=== PATIENT | male | born 1950 | race Hispanic/Latino ===

== ENCOUNTER → 2017-12-24 07:32 | Outpatient (CLI) | payer MEDICARE, SELFPAY ==
[2017-12-24 08:16] LABS: Absolute Lymphocyte Count 2.53 X10^3/ul (0.83-4.51); Absolute Neutrophil Count 4.7 X10^3/uL (2.0-7.7); Basophil# 0.04 X10^3/uL; Basophil% 0.5 % (0-1); Eosinophils% 2.5 % (0-5); Hematocrit 46.7 % (40-54); Hemoglobin 16.1 g/dl (13.0-16.5); Lymphocyte # 2.53 X10^3/ul (4.0); Mean Corp Hgb Conc 34.5 g/gl (32-36); Mean Corpuscular Hgb 28.9 pg (27.0-32.0); Mean Corpuscular Volume 83.7 fL (80-94); Mean Platelet Vol. 10.3 fl (6.2-12.0); Monocyte% 7.4 % (0-10); Neutrophil # 4.74 X10^3/uL (2.7-7.7); Neutrophil % 58.1 % (47-70); POSITIVE COUNT NO; POSITIVE DIFFERENTIAL NO; POSITIVE MORPHOLOGY NO; Platelet Count 199 K/mm3 (150-450); RBC Distribution Width CV 13.6 % (11.6-14.6); RBC Distribution Width SD 41.5 fl (35.1-43.9); Red Blood Count 5.58 M/mm3 (4.6-6.2); White Blood Count 8.2 K/mm3 (4.4-11.0)
[2017-12-24 08:55] LABS: AST(SGOT) 16 U/L (15-37); Alanine Aminotransfer ALT/SGPT 18 U/L (16-61); Albumin, Serum 3.7 g/dL (3.2-5.0); Alkaline Phosphatase 69 U/L (45-117); Anion Gap 7 (5-15); BUN 19 mg/dL (7-18); BUN/Creat Ratio 24.8 RATIO (10-20); Bilirubin, Direct 0.15 mg/dL (0.00-0.30); Calcium,Total 8.7 mg/dL (8.5-10.1); Chloride 106 mmol/L (98-107); Cholesterol 159 mg/dL (200); Creatinine, Serum 0.77 mg/dL (0.70-1.30); EST Glomerular Filtration Rate 107 mL/min (>60); Est Glom Filt Rate - Afr Amer 130 mL/min (>60); Globulin 3.6 g/dL (2.2-4.2); Glucose 84 mg/dL (74-106); High Density Lipoprotein 33 mg/dL; Potassium 4.1 mmol/L (3.5-5.1); Protein, Total 7.3 g/dL (6.4-8.2); Sodium Level 140 mmol/L (136-145); Thyroid Stim Hormone (TSH) 1.99 uIU/mL (0.358-3.74); Triglycerides 265 mg/dL; Very Low Density Lipoprotein 53 mg/dL (5-40)
== END ==
PROVIDERS: Family Provider Family Medicine; PCP Family Medicine; Visit Provider Physician Assistant Medical
DX: I10 Essential (primary) hypertension (principal); E78.5 Hyperlipidemia, unspecified; I25.10 Atherosclerotic heart disease of native coronary artery without angina pectoris; Z79.899 Other long term (current) drug therapy
CPT/HCPCS: 36415; 80048; 80061; 80076; 84443; 85025

== ENCOUNTER → 2018-01-10 14:30 | Outpatient (CLI) | payer MEDICARE, SELFPAY ==
[2018-01-10 15:46] LABS: PSA,Total - Annual Screen 1.99 ng/mL (0.00-4.00)
== END ==
PROVIDERS: Family Provider Family Medicine; PCP Family Medicine; Visit Provider Urology
DX: Z12.5 Encounter for screening for malignant neoplasm of prostate (principal)
CPT/HCPCS: 36415; 84153; G0103

== ENCOUNTER → 2018-08-12 06:49 | Outpatient (CLI) | payer MEDICARE, SELFPAY ==
[2018-08-12 08:33] LABS: AST(SGOT) 18 U/L (15-37); Alanine Aminotransfer ALT/SGPT 19 U/L (16-61); Albumin, Serum 3.6 g/dL (3.2-5.0); Alkaline Phosphatase 67 U/L (45-117); Bilirubin, Direct 0.09 mg/dL (0.00-0.30); Cholesterol 176 mg/dL (200); Globulin 3.5 g/dL (2.2-4.2); High Density Lipoprotein 31 mg/dL; Protein, Total 7.1 g/dL (6.4-8.2); Triglycerides 285 mg/dL; Very Low Density Lipoprotein 57 mg/dL (5-40)
== END ==
PROVIDERS: Family Provider Family Medicine; PCP Family Medicine; Visit Provider Internal Medicine Cardiovascular Disease
DX: I10 Essential (primary) hypertension (principal); E78.5 Hyperlipidemia, unspecified
CPT/HCPCS: 36415; 80061; 80076

== ENCOUNTER → 2019-01-16 14:38 | Outpatient (CLI) | payer MEDICARE, SELFPAY ==
--- NOTE | 2019-01-16 15:22 | RAD_ITS ---
STUDY: X-RAY CHEST REASON FOR EXAM: Male, 68 years old. Cough TECHNIQUE: PA and lateral views of the chest. COMPARISON: None. FINDINGS: Hyperexpansion of the lungs. No confluent airspace opacity. Calcified nodule at the right midlung base. Subtle nodular density at the right lateral lung base which likely represents a nipple shadow. No pleural effusion. No pneumothorax. Normal size heart. Normal mediastinum and bonifacio. Normal visualized pulmonary arteries. There is atherosclerotic calcification of the aortic arch with tortuosity. Macro spine. Normal visualized ribs, clavicles, and shoulders. There is no demonstrated abnormality of the visualized soft tissue structures of the upper abdomen. RAD/Chest PA and Lateral IMPRESSION: Chronic obstructive change with no evidence of acute cardiopulmonary disease. Electronically Signed: Julio Cesar Wagner MD at 2:28 EST Tel , Service support ,
[2019-01-16 16:39] LABS: Absolute Lymphocyte Count 1.38 X10^3/ul (0.83-4.51); Absolute Neutrophil Count 5.7 X10^3/uL (2.0-7.7); Basophil# 0.03 X10^3/uL; Basophil% 0.4 % (0-1); Eosinophil# 0.16 X10^3/uL; Hematocrit 47.4 % (40-54); Hemoglobin 15.7 g/dl (13.0-16.5); Lymphocyte # 1.38 X10^3/ul (4.0); Lymphocyte % 16.9 % (19-41); Mean Corp Hgb Conc 33.1 g/gl (32-36); Mean Corpuscular Hgb 28.5 pg (27.0-32.0); Mean Corpuscular Volume 86.2 fL (80-94); Mean Platelet Vol. 11.2 fl (6.2-12.0); Monocyte# 0.93 X10^3/uL; Monocyte% 11.4 % (0-10); Neutrophil # 5.65 X10^3/uL (2.7-7.7); Neutrophil % 69.1 % (47-70); Platelet Count 222 K/mm3 (150-450); RBC Distribution Width CV 13.5 % (11.6-14.6); RBC Distribution Width SD 41.6 fl (35.1-43.9); White Blood Count 8.2 K/mm3 (4.4-11.0)
[2019-01-16 16:42] LABS: POSITIVE COUNT NO; POSITIVE DIFFERENTIAL NO; POSITIVE MORPHOLOGY NO
[2019-01-16 16:56] LABS: Anion Gap 11 (5-15); BUN 15 mg/dL (7-18); BUN/Creat Ratio 20.3 RATIO (10-20); Chloride 102 mmol/L (98-107); Creatinine, Serum 0.74 mg/dL (0.70-1.30); EST Glomerular Filtration Rate 111 mL/min (>60); Est Glom Filt Rate - Afr Amer 135 mL/min (>60); Glucose 81 mg/dL (74-106); PSA,Total - Annual Screen 2.21 ng/mL (0.00-4.00); Potassium 4.2 mmol/L (3.5-5.1); Sodium Level 139 mmol/L (136-145); Thyroid Stim Hormone (TSH) 1.27 uIU/mL (0.358-3.74)
== END ==
PROVIDERS: Family Provider Family Medicine; PCP Family Medicine; Referring Provider Urology; Visit Provider Urology
DX: I10 Essential (primary) hypertension (principal); E78.5 Hyperlipidemia, unspecified; Z12.5 Encounter for screening for malignant neoplasm of prostate; R05 Cough
CPT/HCPCS: 36415; 71046; 80048; 84153; 84443; 85025; G0103

== ENCOUNTER 2019-07-04 16:08 | Inpatient (IN) | payer MEDICARE, SELFPAY ==
[2019-07-04 16:09] VITALS: BP 102/64; PULSE 129; RESP 16; TEMP 36.4; O2SAT 99; BMI 27.4
--- NOTE | 2019-07-04 16:43 | EKG12_ITS ---
Test Reason : DIZZINESS Blood Pressure : / mmHG Vent. Rate : 099 BPM Atrial Rate : 099 BPM P-R Int : 138 ms QRS Dur : 084 ms QT Int : 364 ms P-R-T Axes : 037 -09 -10 degrees QTc Int : 467 ms Normal sinus rhythm Nonspecific ST abnormality Abnormal ECG Confirmed by RINKU PINEDA ([id number]), desk editor WESLEY HERCULES ([id number]) on 07/05/2019 2:20:01 PM Referred By: Erika Cope Confirmed By:RINKU PINEDA
--- NOTE | 2019-07-04 16:44 | ED.DCSUM_ITS ---
- ER Visit Summary Date of Service: 07/04/19 Chief Complaint: Dizziness History of Present Illness: The patient is a 68 M presenting with dizziness, denies syncope. Patient states this started last night. He started having black stool with blood in his stool last night. He has had approximately 10 episodes of black diarrhea today. He was seen by his primary care physician and sent to the ED for further evaluation. He denies chest pain, shortness of breath, abdominal pain. He has nausea with no vomiting. Denies fever. Denies other complaints. He is on aspirin and Plavix. Physical Examination: Vitals are stable. Patient is afebrile. Alert no acute distress. HEENT exam is unremarkable. Neck is supple. Lungs are clear and equal bilaterally. Heart is regular and tachycardic Abdomen is soft nontender nondistended. No guarding or rebound Rectal: Gross blood Extremities are unremarkable. Skin is warm and dry. No focal neurologic deficit. Remainder of exam is unremarkable. Emergency Department Course and Treatment: Patient was given IV fluids. CBC shows white count 18.3, hemoglobin 12.5. Chemistries show glucose 186, BUN 29. INR 1.1. Troponin is negative. Stool is guaiac negative. I believe this is likely a false negative. Discussed with the hospitalist and Dr. Ortega. Patient will be admitted. Disposition: Admission Impression: GI bleed This note was generated with [employer] dictation software. It may contain incorrect words, spelling, and punctuation that were not noted in review of the chart prior to signing ED Disposition - Plan for ED Patient: Referrals: Jasmeet Murray MD [Primary Care Provider] -
[2019-07-04 16:46] VITALS: BP 100/83; PULSE 115; RESP 37; O2SAT 97
[2019-07-04] MEDS: 0.9% Normal Saline 1,000 ML 1000 ML IV (16:50)
[2019-07-04 17:21] LABS: Anion Gap 11 (5-15); BUN 29 mg/dL (7-18); BUN/Creat Ratio 22.3 RATIO (10-20); Calcium,Total 8.5 mg/dL (8.5-10.1); Chloride 106 mmol/L (98-107); EST Glomerular Filtration Rate 58 mL/min (>60); Est Glom Filt Rate - Afr Amer 70 mL/min (>60); Estimated Creatinine Clearance 40.83 ml/min; Glucose 186 mg/dL (74-106); Potassium 3.9 mmol/L (3.5-5.1); Sodium Level 140 mmol/L (136-145)
[2019-07-04 17:24] LABS: Absolute Lymphocyte Count 1.25 X10^3/uL (0.83-4.51); Absolute Neutrophil Count 16.2 X10^3/uL (2.0-7.7); Basophil# 0.03 X10^3/uL; Basophil% 0.2 % (0-1); Hematocrit 36.7 % (40-54); Hemoglobin 12.5 g/dL (13.0-16.5); Lymphocyte # 1.25 X10^3/ul (4.0); Lymphocyte % 6.8 % (19-41); Mean Corp Hgb Conc 34.1 g/dL (32-36); Mean Corpuscular Hgb 28.9 pg (27.0-32.0); Mean Corpuscular Volume 84.8 fL (80-94); Mean Platelet Vol. 10.5 fl (6.2-12.0); Monocyte# 0.61 X10^3/uL; Monocyte% 3.3 % (0-10); NRBC Flagged by Analyzer 0 % (0-5); Neutrophil # 16.24 X10^3/uL (2.7-7.7); Neutrophil % 88.8 % (47-70); POSITIVE MORPHOLOGY YES; Platelet Count 244 K/mm3 (150-450); RBC Distribution Width CV 13.2 % (11.6-14.6); RBC Distribution Width SD 40.9 fl (35.1-43.9); Red Blood Count 4.33 M/mm3 (4.6-6.2); White Blood Count 18.3 K/mm3 (4.4-11.0)
[2019-07-04 17:28] LABS: International Normalized Ratio 1.1; Partial Thromboplast Time 24.5 Seconds (24.1-36.2); Prothrombin Time (Protime)PT. 14.2 SECONDS (11.7-14.9)
[2019-07-04 17:29] LABS: Differential Indicated SCAN CRITERIA MET
[2019-07-04 18:18] LABS: Differential Comment SCANNED; Platelet Estimate ADEQUATE (ADEQ); Red Cell Morphology NORM C+C NORMAL (NORM C&C)
[2019-07-04 18:31] VITALS: BP 117/73; PULSE 96; RESP 27; O2SAT 97
--- NOTE | 2019-07-04 18:58 | PCM.HP.STD ---
Problem List (1) GI bleed Status: Acute (2) CAD (coronary artery disease) Status: Chronic (3) History of GI bleed Status: Chronic (4) Essential (primary) hypertension Status: Chronic (5) HLD (hyperlipidemia) Status: Chronic History of Present Illness Date of Admission: 07/04/19 Chief Complaint: black stools. The patient is a 68 year old M with pmhx of GI bleed, CAD with prior stents, HTN, HLD, BPH who presented to the ER with c/o black stools. This began last night. He has had black stools about 10x since it began in the evening. Today he feels dizzy. He has no SOB, or CP He feels fatigued. He has no nausea or vomiting. No abdominal pain. He has a hx of GI bleed - ten years prior and reports that no source was found. He does take asa/plavix as he has a hx of CAD and prior stents. His department of natural resources officer is Dr. Overton. [] Past Medical History Past Medical History (Chronic Problems): Chronic Problems (Last Reviewed 08/08/18 @ 14:01 by Andreas Overton MD) CAD (coronary artery disease) (Chronic) History of GI bleed (Chronic) Essential (primary) hypertension (Chronic) HLD (hyperlipidemia) (Chronic) Medical History: Medical History (Last Reviewed 08/08/18 @ 14:01 by Andreas Overton MD) Essential (primary) hypertension (Chronic) I10 HLD (hyperlipidemia) (Chronic) E78.5 Allergies No Known Allergies Allergy (Verified 07/04/19 16:11) Home Medications: Ambulatory Orders Medication Instructions Recorded Aspirin [Adult Low Dose Aspirin EC] 81 mg PO DAILY 05/07/16 Finasteride [Proscar] 5 mg PO DAILY 08/11/16 clopidogrel 75 mg tablet 75 mg PO DAILY #90 tab 05/10/18 lovastatin 40 mg tablet 40 mg PO DAILY #90 tab 08/03/18 hydrochlorothiazide 25 mg tablet 25 mg PO DAILY #90 tab 09/14/18 metoprolol tartrate 25 mg tablet 25 mg PO DAILY #90 tab 10/10/18 Ascorbic Acid [Vitamin C] 500 mg PO DAILY@0800 07/04/19 Surgical History: Surgical History (Last Reviewed 08/08/18 @ 14:01 by Andreas Overton MD) H/O percutaneous transluminal coronary angioplasty (Resolved) Z98.61 02/26/05 [facility], PTCA and stenting of proximal LAD and PTCA and stenting to proximal RCA at [facility] Surgical History: herniorrhaphy Psychiatric History: No pertinent psych hx Lives: Spouse/ Significant Other Smoking Status: Never smoker Tobacco Use: Non-smoker Alcohol: None Drugs: None - *Family History Maternal Family History: Family History (Last Reviewed 08/08/18 @ 14:01 by Andreas Overton MD) Father Diabetes History Items: No pertinent history Paternal Family History: Family History (Last Reviewed 08/08/18 @ 14:01 by Andreas Overton MD) Father Diabetes History Items: No pertinent history Review of Systems Constitutional: Denies: Chills, Fever, Weight Change HEENT: Denies: Head Aches, Sinus Congestion, Sinus Drainage Cardiovascular: Reports: Light Headedness, Syncope. Denies: Chest Pain, Chest Tightness, Edema, Heaviness, Palpitations Respiratory: Denies: Cough, Shortness of breath at rest, Sputum production Gastrointestinal: Denies: Abdominal Pain, Nausea, Vomiting Genitourinary: Denies: Dysuria Musculoskeletal: Denies: Joint Pain, Joint Tenderness Skin: Denies: Rash, Wounds Neurological: Denies: Numbness, Tingling, Focal weakness Psychiatric: Denies: Anxiety, Depression, Homicidal Ideations, Suicidal Ideations Hematologic/ Lymphatic: Denies: Easy Bruising, Easy Bleeding VTE Information - Inpt Only VTE Present on Admission: No VTE Mechan Device Prophylaxis: SCD's VTE Pharm Prophylaxis ordered?: No Patient Problems: Active and Suspected Problems (Last Reviewed 08/08/18 @ 14:01 by Andreas Overton MD) GI bleed (Acute) - Physical Exam General: Alert, Oriented x3, Cooperative HEENT: Atraumatic, PERRLA, EOMI, Normocephalic Neck: Supple, No JVD, Negative Carotid Bruits Lungs: Clear to auscultation, Normal air movement Cardiovascular: Regular rate, No murmurs Abdomen: Bowel Sounds Present, Soft, Non Tender Extremities: No edema, Capillary Refill Less than 3 Seconds Skin: No rashes, No breakdown Musculoskeletal: No Tenderness to Palpation of Joints or Extremities Neurological: Cranial nerves II-XII grossly intact Psych/Mental Status: Normal Affect, Appropriate, Alert and oriented to time, place, person, mood and affect Vital Signs Temp Pulse Resp BP Pulse Ox 97.6 F L 96 27 H 117/73 97 07/04/19 16:09 07/04/19 18:31 07/04/19 18:31 07/04/19 18:31 07/04/19 18:31 Oxygen Delivery Method Room Air Weight: 150 lb Body Mass Index (BMI) 27.4 Microbiology Past 72 Hours 07/04/19 16:45 Stool Occult Blood (JOSE) - Final Stool Laboratory Tests Past 24 Hrs 07/04/19 07/04/19 07/04/19 16:45 16:45 16:45 WBC 18.3 H RBC 4.33 L Hgb 12.5 L Hct 36.7 L MCV 84.8 MCH 28.9 MCHC 34.1 RDW Std Deviation 40.9 RDW Coeff of Hi 13.2 Plt Count 244 MPV 10.5 Immature Gran % (Auto) 0.900 Neut % (Auto) 88.8 H Lymph % (Auto) 6.8 L [place] % (Auto) 3.3 Eos % (Auto) 0.0 Baso % (Auto) 0.2 Absolute Neuts (auto) 16.2 H Absolute Lymphs (auto) 1.25 Nucleated RBC % 0 Differential Comment SCANNED Platelet Estimate ADEQUATE RBC Morphology NORM C+C PT 14.2 INR 1.1 APTT 24.5 Sodium 140 Potassium 3.9 Chloride 106 Carbon Dioxide 23.0 Anion Gap 11 BUN 29 H Creatinine 1.30 Estim Creat Clear Calc 40.83 Est GFR (MDRD) Af Amer 70 Est GFR (MDRD) Non-Af 58 L BUN/Creatinine Ratio 22.3 H Glucose 186 H Calcium 8.5 Troponin I < 0.015 Assessment/Plan All Active Problems (Last Reviewed 08/08/18 @ 14:01 by Andreas Overton MD) GI bleed (Acute) H/O percutaneous transluminal coronary angioplasty (Resolved) 1. Acute blood loss anemia 2/2 GI bleed - 10x black stools. Hemoccult negative. Hgb 12. Tachy in the ER. Cycle H/H. T&S. Hold Asa/plavix. Consult Shannon. Possible scopes in AM. Check iron/sat/ferritin. IV protonix. Clears. 2. Hx CAD prior stents - hold asa/plavix 3. HTN/HLD 4. Luekocytosis and hyperglycemia - suspect due to stress response. DVT ppx: SCDs This patient was seen by Ruben Marina PA-C under the supervision of Dr. Cope.
[2019-07-04 19:20] VITALS: BMI 24.0
[2019-07-04 19:23] VITALS: BP 125/74; PULSE 102; RESP 20; TEMP 37.1; O2SAT 96
[2019-07-04 19:27] VITALS: BMI 24.1
[2019-07-04 20:00] VITALS: PULSE 110
[2019-07-04] MEDS: 0.9% Normal Saline 1,000 ML 125 ML IV (20:03)
[2019-07-04 20:20] LABS: Hematocrit 30.2 % (40-54); Hemoglobin 10.2 g/dL (13.0-16.5)
[2019-07-04 20:37] LABS: Hemoglobin A1c 5.8 % (4.2-6.3)
[2019-07-04] MEDS: Atorvastatin Calcium 10 MG Tablet PO (21:01)
[2019-07-04] MEDS: Electrolyte Solution/Peg's 4000 ML 2000 ML PO (21:03)
[2019-07-04 22:55] VITALS: O2SAT 97
[2019-07-05] VITALS (18 sets, daily range): BP systolic 86–148; BP diastolic 53–93; PULSE 68–95; RESP 16–20; TEMP 36.6–37.5; O2SAT 93–100
[2019-07-05 02:24] LABS: Hematocrit 25.9 % (40-54); Hemoglobin 8.8 g/dL (13.0-16.5)
[2019-07-05] MEDS: 0.9% Normal Saline 1,000 ML 125 ML IV ×2 (04:15→15:59)
[2019-07-05 05:27] LABS: Absolute Lymphocyte Count 2.17 X10^3/uL (0.83-4.51); Absolute Neutrophil Count 9.4 X10^3/uL (2.0-7.7); Basophil# 0.03 X10^3/uL; Basophil% 0.2 % (0-1); Eosinophil# 0.01 X10^3/uL; Eosinophils% 0.1 % (0-5); Hematocrit 24.3 % (40-54); Hemoglobin 8.1 g/dL (13.0-16.5); Lymphocyte # 2.17 X10^3/ul (4.0); Mean Corp Hgb Conc 33.3 g/dL (32-36); Mean Corpuscular Hgb 28.7 pg (27.0-32.0); Mean Corpuscular Volume 86.2 fL (80-94); Mean Platelet Vol. 10.3 fl (6.2-12.0); Monocyte# 1.05 X10^3/uL; Monocyte% 8.2 % (0-10); NRBC Flagged by Analyzer 0 % (0-5); Neutrophil # 9.38 X10^3/uL (2.7-7.7); Neutrophil % 73.6 % (47-70); Platelet Count 159 K/mm3 (150-450); RBC Distribution Width CV 13.6 % (11.6-14.6); RBC Distribution Width SD 42.5 fl (35.1-43.9); Red Blood Count 2.82 M/mm3 (4.6-6.2); White Blood Count 12.8 K/mm3 (4.4-11.0)
[2019-07-05 05:34] LABS: International Normalized Ratio 1.2; Partial Thromboplast Time 26.9 Seconds (24.1-36.2); Prothrombin Time (Protime)PT. 14.6 SECONDS (11.7-14.9)
--- NOTE | 2019-07-05 05:55 | EKG12_ITS ---
Test Reason : AM EKG Blood Pressure : / mmHG Vent. Rate : 088 BPM Atrial Rate : 088 BPM P-R Int : 148 ms QRS Dur : 088 ms QT Int : 330 ms P-R-T Axes : 026 -22 003 degrees QTc Int : 399 ms Normal sinus rhythm Nonspecific T wave abnormality Abnormal ECG When compared with ECG of 04-JUL-2019 17:01, MANUAL COMPARISON REQUIRED, DATA IS UNCONFIRMED Confirmed by BABS SPRING, ALY ([id number]), proposal editor WESLEY HERCULES ([id number]) on 07/10/2019 1:57:14 PM Referred By: Erika Cope Confirmed By:ALEXIS BRICE MD
[2019-07-05 05:56] LABS: AST(SGOT) 14 U/L (15-37); Alanine Aminotransfer ALT/SGPT 10 U/L (16-61); Albumin, Serum 2.5 g/dL (3.2-5.0); Alkaline Phosphatase 44 U/L (45-117); Anion Gap 3 (5-15); BUN 25 mg/dL (7-18); BUN/Creat Ratio 33.3 RATIO (10-20); Bilirubin, Direct 0.07 mg/dL (0.00-0.30); Calcium,Total 7.2 mg/dL (8.5-10.1); Chloride 113 mmol/L (98-107); Creatinine, Serum 0.75 mg/dL (0.70-1.30); EST Glomerular Filtration Rate 109 mL/min (>60); Est Glom Filt Rate - Afr Amer 132 mL/min (>60); Estimated Creatinine Clearance 55.32 ml/min; Globulin 2.3 g/dL (2.2-4.2); Glucose 109 mg/dL (74-106); Protein, Total 4.8 g/dL (6.4-8.2); Sodium Level 144 mmol/L (136-145)
--- NOTE | 2019-07-05 10:55 | PCM.PN.HOSP ---
Patient Problems: Active and Suspected Problems (Last Reviewed 08/08/18 @ 14:01 by Andreas Overton MD) GI bleed (Acute) Subjective: No further rectal bleeding/melena. Never had this before. No abdominal pain. Vitals/I&O's: Vital Signs Temp Pulse Resp BP Pulse Ox 37.0 C 82 16 121/53 H 98 07/05/19 09:01 07/05/19 09:01 07/05/19 09:01 07/05/19 09:01 07/05/19 09:01 Oxygen Delivery Method Room Air Weight: 61.6 kg Body Mass Index (BMI) 24.0 Intake and Output for Last 24 Hours 07/03/19 07/04/19 07/05/19 23:59 23:59 23:59 Intake Total 1968 743 / 743 Balance 1968 743 / 743 General: Alert, No apparent distress HEENT: Atraumatic, Normocephalic Oral: Moist Mucosa, No Gingival or Mucosal Lesions/ Ulcerations Neck: No Nodes, Thyroid Normal Size and Texture Lungs: Clear to auscultation, Normal air movement, No rhonchi, No wheeze Cardiovascular: Regular rate, Regular Rhythm, Normal S1, Normal S2, No murmurs Abdomen: Bowel Sounds Present, Soft, Non Tender, Non-Distended, No Hepato-splenomegaly Extremities: No edema, No Calf Tenderness Skin: No rashes, No breakdown Musculoskeletal: No Tenderness to Palpation of Joints or Extremities, No Muscle Wasting Psych/Mental Status: Normal Affect, Appropriate Microbiology Past 72 Hours 07/04/19 16:45 Stool Stool Occult Blood (JOSE) - Final Laboratory Results 07/04/19 16:45: WBC 18.3 H, RBC 4.33 L, Hgb 12.5 L, Hct 36.7 L, MCV 84.8, MCH 28.9, MCHC 34.1, RDW Std Deviation 40.9, RDW Coeff of Hi 13.2, Plt Count 244, MPV 10.5, Immature Gran % (Auto) 0.900, Neut % (Auto) 88.8 H, Lymph % (Auto) 6.8 L, [place] % (Auto) 3.3, Eos % (Auto) 0.0, Baso % (Auto) 0.2, Absolute Neuts (auto) 16.2 H, Absolute Lymphs (auto) 1.25, Nucleated RBC % 0, Differential Comment SCANNED, Platelet Estimate ADEQUATE, RBC Morphology NORM C+C 07/04/19 16:45: PT 14.2, INR 1.1, APTT 24.5 07/04/19 16:45: Sodium 140, Potassium 3.9, Chloride 106, Carbon Dioxide 23.0, Anion Gap 11, BUN 29 H, Creatinine 1.30, Estim Creat Clear Calc 40.83, Est GFR (MDRD) Af Amer 70, Est GFR (MDRD) Non-Af 58 L, BUN/Creatinine Ratio 22.3 H, Glucose 186 H, Calcium 8.5, Troponin I < 0.015 07/04/19 16:45: Blood Type A POSITIVE, Antibody Screen NEGATIVE 07/04/19 20:02: Hgb 10.2 L, Hct 30.2 L 07/04/19 20:02: Hemoglobin A1c 5.8 07/05/19 02:10: Hgb 8.8 L, Hct 25.9 L 07/05/19 05:05: WBC 12.8 H, RBC 2.82 L, Hgb 8.1 L, Hct 24.3 L, MCV 86.2, MCH 28.7, MCHC 33.3, RDW Std Deviation 42.5, RDW Coeff of Hi 13.6, Plt Count 159, MPV 10.3, Immature Gran % (Auto) 0.900, Neut % (Auto) 73.6 H, Lymph % (Auto) 17.0 L, [place] % (Auto) 8.2, Eos % (Auto) 0.1, Baso % (Auto) 0.2, Absolute Neuts (auto) 9.4 H, Absolute Lymphs (auto) 2.17, Nucleated RBC % 0 07/05/19 05:05: Sodium 144, Potassium 4.0, Chloride 113 H, Carbon Dioxide 28.0, Anion Gap 3 L, BUN 25 H, Creatinine 0.75, Estim Creat Clear Calc 55.32, Est GFR (MDRD) Af Amer 132, Est GFR (MDRD) Non-Af 109, BUN/Creatinine Ratio 33.3 H, Glucose 109 H, Calcium 7.2 L, Total Bilirubin 0.30, Direct Bilirubin 0.07, AST 14 L, ALT 10 L, Alkaline Phosphatase 44 L, Total Protein 4.8 L, Albumin 2.5 L, Globulin 2.3 07/05/19 05:05: PT 14.6, INR 1.2, APTT 26.9 Current Medications Acetaminophen (Tylenol) 650 mg PO Q6H PRN PRN PRN Reason: Non-cardiac pain (mod-severe) Hydrocodone Bitart/Acetaminophen ([place] 5mg-325mg) 1 - 2 tablet PO Q6H PRN PRN PRN Reason: MOD-SEVERE PAIN (4-10/10) Albuterol Sulfate (Ventolin Aerosols) 2.5 mg INHALATION Q2H PRN PRN PRN Reason: dyspnea, wheezing Atorvastatin Calcium (Lipitor) 10 mg PO QHS [facility] Last Admin: 07/04/19 21:01 Dose: 10 mg Documented by: Dextrose ([id number] Syringe) 0 gm IV X1 PRN; Protocol PRN Reason: Hypoglycemia Finasteride (Proscar) 5 mg PO DAILY [facility] Glucagon () 1 mg IM .X1 PRN PRN Reason: Hypoglycemia Hydralazine HCl (Apresoline Iv) 10 mg IV Q4H PRN PRN PRN Reason: SBP > 160 Hydrochlorothiazide (Hctz) 25 mg PO DAILY [facility] Sodium Chloride () 1,000 mls @ 125 mls/hr IV .Q8H [facility] Last Admin: 07/05/19 04:15 Dose: 125 mls/hr Documented by: Pantoprazole Sodium 40 mg/ (Sodium Chloride) 110 mls @ 330 mls/hr IV Q12 [facility] Last Admin: 07/04/19 21:01 Dose: 330 mls/hr Documented by: Melatonin (Melatonin) 3 mg PO QHS PRN PRN PRN Reason: INSOMNIA Metoprolol Succinate (Toprol Xl ([place]eta [place])) 25 mg PO DAILY [facility] Morphine Sulfate () 1 - 2 mg IV Q4H PRN PRN PRN Reason: PAIN Nitroglycerin (Nitrostat) 0.4 mg SUBLINGUAL Q5M PRN PRN Reason: CARDIAC/CHEST PAIN Ondansetron HCl (Zofran) 4 mg IV Q8H PRN PRN PRN Reason: NAUSEA/VOMITING Sodium Chloride () 10 - 40 ml IV UD PRN PRN Reason: SALINE FLUSH Medical Necessity - Tobacco Use Smoking Status: Never smoker Tobacco Use: Non-smoker Assessment/Plan All Active Problems (Last Reviewed 08/08/18 @ 14:01 by Andreas Overton MD) GI bleed (Acute) H/O percutaneous transluminal coronary angioplasty (Resolved) 1. GI bleed unknown source resolved at this time on pantoprazole IV EGD and c-scope for today exacerbated by ASA and clopidogrel--which have been held 2. Acute blood loss anemia 2/2 above Hg went from 12.5 to 8.1 no need for transfusion at this time. 3. CAD last PCI in 2004 ASA and clopidogrel held given above, unclear when could be restarted. Likely to start with ASA. Question if needs to continue clopidogrel. 4. VTE prophylaxis: SCDs. no chemical prophylaxis given #1 and 2. Code Visit Inpatient E&M: 25867 Subs Hosp L2
--- NOTE | 2019-07-05 10:56 | PCM.CONS.GEN ---
Reason for Consult Date of Consultation: 07/05/19 Reason for Consultation: acute anemia History of Present Illness: The patient is a 68 year old M with history of coronary artery disease status post percutaneous transluminal coronary stenting on Plavix and aspirin who presents with a 1 day history of bloody stools. He notes no abdominal pain. He notes no reflux episodes or other difficulties. He presented emergency department. He was noted to have it was felt to be renetta blood. Interestingly his occult blood was listed as negative. The patient was noted to be tachycardic on presentation with a heart rate of 129 area initial hemoglobin was 12.. The patient was admitted to the medicine service. he was bowel prepped given the fact that he responded to IV fluid hydration and was felt to be a reasonable hematocrit on presentation. His hemoglobin this morning is dropped to 8.1. The patient states he feels no chest pain or shortness of breath. We had discussed the possibility of blood transfusion the patient wishes not to undergo blood transfusion. Past Medical History Past Medical History (Chronic Problems): Chronic Problems (Last Reviewed 08/08/18 @ 14:01 by Andreas Overton MD) CAD (coronary artery disease) (Chronic) History of GI bleed (Chronic) Essential (primary) hypertension (Chronic) HLD (hyperlipidemia) (Chronic) Medical History: Medical History (Last Reviewed 08/08/18 @ 14:01 by Andreas Overton MD) Essential (primary) hypertension (Chronic) I10 HLD (hyperlipidemia) (Chronic) E78.5 Allergies No Known Allergies Allergy (Verified 07/04/19 16:11) Home Medications: Ambulatory Orders Medication Instructions Recorded Aspirin [Adult Low Dose Aspirin EC] 81 mg PO DAILY 05/07/16 Finasteride [Proscar] 5 mg PO DAILY 08/11/16 clopidogrel 75 mg tablet 75 mg PO DAILY #90 tab 05/10/18 lovastatin 40 mg tablet 40 mg PO DAILY #90 tab 08/03/18 hydrochlorothiazide 25 mg tablet 25 mg PO DAILY #90 tab 09/14/18 metoprolol tartrate 25 mg tablet 25 mg PO DAILY #90 tab 10/10/18 Ascorbic Acid [Vitamin C] 500 mg PO DAILY@0800 07/04/19 Surgical History: Surgical History (Last Reviewed 08/08/18 @ 14:01 by Andreas Overton MD) H/O percutaneous transluminal coronary angioplasty (Resolved) Z98.61 02/26/05 [facility], PTCA and stenting of proximal LAD and PTCA and stenting to proximal RCA at [facility] Surgical History: herniorrhaphy Psychiatric History: No pertinent psych hx Lives: Spouse/ Significant Other Smoking Status: Never smoker Tobacco Use: Non-smoker Alcohol: None Drugs: None - *Family History Maternal Family History: Family History (Last Reviewed 08/08/18 @ 14:01 by Andreas Overton MD) Father Diabetes History Items: No pertinent history Paternal Family History: Family History (Last Reviewed 08/08/18 @ 14:01 by Andreas Overton MD) Father Diabetes History Items: No pertinent history Review of Systems Constitutional: Reports: Weakness. Denies: Chills, Fever, Weight Change HEENT: Denies: Head Aches, Sinus Congestion, Sinus Drainage Cardiovascular: Denies: Chest Pain, Palpitations Respiratory: Denies: Cough, Shortness of breath at rest, Sputum production Gastrointestinal: Denies: Abdominal Pain, Nausea, Vomiting Genitourinary: Denies: Dysuria Musculoskeletal: Denies: Joint Pain, Joint Tenderness Skin: Denies: Rash, Wounds Neurological: Denies: Numbness, Tingling, Focal weakness Psychiatric: Denies: Anxiety, Depression, Homicidal Ideations, Suicidal Ideations Hematologic/ Lymphatic: Denies: Easy Bruising, Easy Bleeding Patient Problems: Active and Suspected Problems (Last Reviewed 08/08/18 @ 14:01 by Andreas Overton MD) GI bleed (Acute) - Physical Exam General: Alert, Oriented x3, Cooperative Lungs: Clear to auscultation, Normal air movement Cardiovascular: Regular rate, No murmurs Abdomen: Bowel Sounds Present, Soft, Non Tender Vital Signs Temp Pulse Resp BP Pulse Ox 98.6 F 82 16 121/53 H 98 07/05/19 09:01 07/05/19 09:01 07/05/19 09:01 07/05/19 09:01 07/05/19 09:01 Oxygen Delivery Method Room Air Weight: 61.6 kg Body Mass Index (BMI) 24.0 Intake and Output for Last 24 Hours 07/03/19 07/04/19 07/05/19 23:59 23:59 23:59 Intake Total 1968 743 / 743 Balance 1968 743 / 743 Microbiology Past 72 Hours 07/04/19 16:45 Stool Occult Blood (JOSE) - Final Stool Laboratory Tests Past 24 Hrs 07/04/19 07/04/19 07/04/19 16:45 16:45 16:45 WBC 18.3 H RBC 4.33 L Hgb 12.5 L Hct 36.7 L MCV 84.8 MCH 28.9 MCHC 34.1 RDW Std Deviation 40.9 RDW Coeff of Hi 13.2 Plt Count 244 MPV 10.5 Immature Gran % (Auto) 0.900 Neut % (Auto) 88.8 H Lymph % (Auto) 6.8 L [place] % (Auto) 3.3 Eos % (Auto) 0.0 Baso % (Auto) 0.2 Absolute Neuts (auto) 16.2 H Absolute Lymphs (auto) 1.25 Nucleated RBC % 0 Differential Comment SCANNED Platelet Estimate ADEQUATE RBC Morphology NORM C+C PT 14.2 INR 1.1 APTT 24.5 Sodium 140 Potassium 3.9 Chloride 106 Carbon Dioxide 23.0 Anion Gap 11 BUN 29 H Creatinine 1.30 Estim Creat Clear Calc 40.83 Est GFR (MDRD) Af Amer 70 Est GFR (MDRD) Non-Af 58 L BUN/Creatinine Ratio 22.3 H Glucose 186 H Hemoglobin A1c Calcium 8.5 Total Bilirubin Direct Bilirubin AST ALT Alkaline Phosphatase Troponin I < 0.015 Total Protein Albumin Globulin Blood Type Antibody Screen 07/04/19 07/04/19 07/04/19 16:45 20:02 20:02 WBC RBC Hgb 10.2 L Hct 30.2 L MCV MCH MCHC RDW Std Deviation RDW Coeff of Hi Plt Count MPV Immature Gran % (Auto) Neut % (Auto) Lymph % (Auto) [place] % (Auto) Eos % (Auto) Baso % (Auto) Absolute Neuts (auto) Absolute Lymphs (auto) Nucleated RBC % Differential Comment Platelet Estimate RBC Morphology PT INR APTT Sodium Potassium Chloride Carbon Dioxide Anion Gap BUN Creatinine Estim Creat Clear Calc Est GFR (MDRD) Af Amer Est GFR (MDRD) Non-Af BUN/Creatinine Ratio Glucose Hemoglobin A1c 5.8 Calcium Total Bilirubin Direct Bilirubin AST ALT Alkaline Phosphatase Troponin I Total Protein Albumin Globulin Blood Type A POSITIVE Antibody Screen NEGATIVE 07/05/19 07/05/19 07/05/19 02:10 05:05 05:05 WBC 12.8 H RBC 2.82 L Hgb 8.8 L 8.1 L Hct 25.9 L 24.3 L MCV 86.2 MCH 28.7 MCHC 33.3 RDW Std Deviation 42.5 RDW Coeff of Hi 13.6 Plt Count 159 MPV 10.3 Immature Gran % (Auto) 0.900 Neut % (Auto) 73.6 H Lymph % (Auto) 17.0 L [place] % (Auto) 8.2 Eos % (Auto) 0.1 Baso % (Auto) 0.2 Absolute Neuts (auto) 9.4 H Absolute Lymphs (auto) 2.17 Nucleated RBC % 0 Differential Comment Platelet Estimate RBC Morphology PT INR APTT Sodium 144 Potassium 4.0 Chloride 113 H Carbon Dioxide 28.0 Anion Gap 3 L BUN 25 H Creatinine 0.75 Estim Creat Clear Calc 55.32 Est GFR (MDRD) Af Amer 132 Est GFR (MDRD) Non-Af 109 BUN/Creatinine Ratio 33.3 H Glucose 109 H Hemoglobin A1c Calcium 7.2 L Total Bilirubin 0.30 Direct Bilirubin 0.07 AST 14 L ALT 10 L Alkaline Phosphatase 44 L Troponin I Total Protein 4.8 L Albumin 2.5 L Globulin 2.3 Blood Type Antibody Screen 07/05/19 05:05 WBC RBC Hgb Hct MCV MCH MCHC RDW Std Deviation RDW Coeff of Hi Plt Count MPV Immature Gran % (Auto) Neut % (Auto) Lymph % (Auto) [place] % (Auto) Eos % (Auto) Baso % (Auto) Absolute Neuts (auto) Absolute Lymphs (auto) Nucleated RBC % Differential Comment Platelet Estimate RBC Morphology PT 14.6 INR 1.2 APTT 26.9 Sodium Potassium Chloride Carbon Dioxide Anion Gap BUN Creatinine Estim Creat Clear Calc Est GFR (MDRD) Af Amer Est GFR (MDRD) Non-Af BUN/Creatinine Ratio Glucose Hemoglobin A1c Calcium Total Bilirubin Direct Bilirubin AST ALT Alkaline Phosphatase Troponin I Total Protein Albumin Globulin Blood Type Antibody Screen Assessment/Plan All Active Problems (Last Reviewed 08/08/18 @ 14:01 by Andreas Overton MD) GI bleed (Acute) H/O percutaneous transluminal coronary angioplasty (Resolved) GI bleed, acute hemoglobin drop from 12-8. I plan to perform upper and lower endoscopy. The patient understands the risks, benefits, complications and possible alternatives procedure and consents to the planned procedure. The patient currently receiving IV Protonix. He has a type and screen ordered. The patient states he does not wish to have a blood transfusion this is possible. I discussed with him that if his hemoglobin drops much below 8, given his cardiac history it would likely be prudent to transfuse him.
--- NOTE | 2019-07-05 11:30 | IMM_PTH ---
PATIENT: LATISHA DANIELS LOC: [facility] U#:[id number] AGE/SX: 68/M ROOM: [facility] RE07/04/[address]: Dr. Sanket Chen DO : 1950 BED: 1 DIS: 07/06/2019 SPEC #: [id number] RECD: 07/05/19 15:30 STATUS: JT REQ #: [id number] LUANN: 07/05/19 11:[address]: Avery Ortega DEPT: IMMUNOHISTOCHEMISTRY RECD BY: Madina Hager ENTERED: 07/05/19 15:30 SP TYPE: IMMUNO OTHR DR: MD Dr. Sanket Benitez DO Dr. Scott Hannan, MD Tissues: Stomach, NOS Procedures: H Pylori (initial) PHYSICIAN & INSTITUTION [place] [id number] SPECIMEN INFORMATION: Tissue Source: Antral biopsy Clinical Info: Acute GI bleed Specimen Number: [id number] CPT code: 66583 METHODOLOGY: Deparaffinized sections of prefer/formalin-fixed tissue or PAP/DQ stained slides are incubated with monoclonal/polyclonal antibodies/oligonucleotide probes. Localization is made via biotin free immunoperoxidase method. Appropriate controls are performed and reacted as expected. Results on target cell population are indicated in the following table: RESULTS: ANTIBODY / CLONE RESULT H Pylori (polyclonal) negative These tests were developed and their performance characteristics determined by [facility]. They may not have been cleared or approved by the U.S. Food and Drug Administration. The FDA has determined that such clearance or approval is not necessary. INTERPRETATION: Antral biopsy: Negative for Helicobacter pylori organisms. AM:andrés 07/06/19
--- NOTE | 2019-07-05 11:30 | COLBX_PTH ---
PATIENT: LATISHA DANIELS LOC: [facility] U#:[id number] AGE/SX: 68/M ROOM: [facility] RE07/04/[address]: Dr. Sanket Chen DO : 1950 BED: 1 DIS: 07/06/2019 SPEC #: [id number] RECD: 07/05/19 13:24 STATUS: JT REQ #: [id number] LUANN: 07/05/19 11:[address]: Avery Ortega DEPT: SURGICAL PATHOLOGY RECD BY: Ed Tay ENTERED: 07/05/19 13:56 SP TYPE: COLON BX OTHR DR: MD Dr. Sanket Benitez DO Dr. Scott Hannan, MD Tissues: Gastric mucous membrane Procedures: Surgery Specimen Level IV HEADER OPERATION: [place] PRE-[place] DIAGNOSIS: Acute GI bleed TISSUE SUBMITTED: Antral biopsy for H. pylori and pathology MICROSCOPIC DIAGNOSIS Gastric antrum, biopsy: Mild to moderate chronic gastritis. AM:andrés 07/06/19 COMMENT The results of immunohistochemistry for Helicobacter pylori will be reported separately ([id number]). MICROSCOPIC DESCRIPTION Slides are reviewed. GROSS DESCRIPTION Received in fixative is one container labeled with the patient's name and designated antral biopsy. The specimen consists of one irregular fragment of light manriquez soft tissue that measures 0.3 x 0.3 x 0.1 cm. The specimen is totally submitted in one cassette. / SJ:andrés 07/05/19 TC:3 CPT: 13091
--- NOTE | 2019-07-05 12:15 | OP.ENDO_ITS ---
07/05/2019 Jasmeet Murray Re : Upper GI endoscopy procedure for Arun Friedman Dear Trevor This procedure was performed on June. My impressions and recommendations are as follows: Impressions : - Normal examined jejunum. - Normal. - Normal antrum. Biopsied. - Small hiatal hernia. - Normal esophagus. Recommendations : - Return patient to [facility] for ongoing care. - Continue present medications. My findings are described in the full procedure note, which is enclosed. If I can be of further assistance, please feel free to contact me at Doctor phone number(s): , Work: . Sincerely, Avery Ortega MD 07/05/2019 12:15:17 PM This report has been signed electronically.
--- NOTE | 2019-07-05 12:18 | OP.ENDO_ITS ---
07/05/2019 Jasmeet Murray Re : Colonoscopy procedure for Arun Friedman Dear Trevor This procedure was performed on June. My impressions and recommendations are as follows: Impressions : - The examined portion of the ileum was normal. - Diverticulosis in the entire examined colon. - The distal rectum and anal verge are normal on retroflexion view. - No specimens collected. Recommendations : - Return patient to [facility] for ongoing care. - Advance diet as tolerated. - No recommendation at this time regarding repeat colonoscopy. - Continue present medications. My findings are described in the full procedure note, which is enclosed. If I can be of further assistance, please feel free to contact me at Doctor phone number(s): , Work: . Sincerely, Avery Ortega MD 07/05/2019 12:18:18 PM This report has been signed electronically.
[2019-07-05] MEDS: Metoprolol(XL)Succ 25 MG Tablet PO (13:41)
[2019-07-05] MEDS: Finasteride 5 MG Tablet PO (13:41)
--- NOTE | 2019-07-05 13:46 | CASEMGMT ---
RN CM Assessment Presentation: GIB, for EGD, colonoscopy Intro role of CM and purpose of RN CM assessment to patient in room. Pt is awake, alert and able to participate in assessment. Demographics, PCP and Pharmacy verified. pt states he is independent, lives with and plans to return home on dc. PCP: Dr. Jasmeet King Specialists: Dr. Ortega [facility] Insurance: [facility] Prescription Benefit: LNOK: , Antonia Friedman Living Arrangements: Lives independently with . Denies any care needs on dc. Transportation: drives DME: none HHC: none Patient DC goals: Home DC PLAN: Home. Zion CROWLEY RN ACM
[2019-07-05 14:17] LABS: Hematocrit 24.4 % (40-54); Hemoglobin 8.1 g/dL (13.0-16.5)
--- NOTE | 2019-07-05 22:29 | NURSING ---
Handoff report given to Alivia yepez RN at this time. She will be taking over care of this pt. at this time.
[2019-07-06] VITALS (9 sets, daily range): BP systolic 112–147; BP diastolic 65–82; PULSE 64–82; RESP 14–16; TEMP 36.7–36.9; O2SAT 93–100
[2019-07-06] MEDS: 0.9% Normal Saline 1,000 ML 125 ML IV ×2 (00:14→07:51)
[2019-07-06 07:53] LABS: Absolute Lymphocyte Count 1.88 X10^3/uL (0.83-4.51); Absolute Neutrophil Count 5.9 X10^3/uL (2.0-7.7); Basophil# 0.02 X10^3/uL; Basophil% 0.2 % (0-1); Eosinophil# 0.06 X10^3/uL; Eosinophils% 0.7 % (0-5); Hematocrit 24.4 % (40-54); Lymphocyte # 1.88 X10^3/ul (4.0); Lymphocyte % 21.6 % (19-41); Mean Corp Hgb Conc 32.8 g/dL (32-36); Mean Corpuscular Hgb 28.9 pg (27.0-32.0); Mean Corpuscular Volume 88.1 fL (80-94); Mean Platelet Vol. 10.3 fl (6.2-12.0); Monocyte# 0.69 X10^3/uL; Monocyte% 7.9 % (0-10); NRBC Flagged by Analyzer 0.8 % (0-5); Neutrophil # 5.92 X10^3/uL (2.7-7.7); Platelet Count 158 K/mm3 (150-450); RBC Distribution Width CV 13.9 % (11.6-14.6); RBC Distribution Width SD 44.8 fl (35.1-43.9); Red Blood Count 2.77 M/mm3 (4.6-6.2); White Blood Count 8.7 K/mm3 (4.4-11.0)
[2019-07-06] MEDS: Metoprolol(XL)Succ 25 MG Tablet PO (09:56)
[2019-07-06] MEDS: Finasteride 5 MG Tablet PO (09:56)
[2019-07-06] MEDS: hydroCHLOROthiazide 25 MG Tablet PO (09:57)
--- NOTE | 2019-07-06 10:37 | DCINST_ITS ---
- Discharge Diagnoses Current Active Problems: Current Active and Chronic Problems (Last Reviewed 08/08/18 @ 14:01 by Andreas Overton MD) CAD (coronary artery disease) (Chronic) History of GI bleed (Chronic) GI bleed (Acute) You will use the following diet at home:: Cardiac Your food should be the consistency of: Regular Your liquids should be the consistency of: Regular/Thin Call your doctor if you observe: - - rectal bleeding, dark tarry stools Allergies/Adverse Reactions: Allergies No Known Allergies Allergy (Verified 07/04/19 16:11) Medications to take at Discharge Finasteride [Proscar] 5 mg PO DAILY 08/11/16 lovastatin 40 mg tablet 40 mg PO DAILY #90 tab 08/03/18 hydrochlorothiazide 25 mg tablet 25 mg PO DAILY #90 tab 09/14/18 metoprolol tartrate 25 mg tablet 25 mg PO DAILY #90 tab 10/10/18 Ascorbic Acid [Vitamin C] 500 mg PO DAILY@0800 07/04/19 Aspirin [Adult Low Dose Aspirin EC] 81 mg PO DAILY #0 07/06/19 Ferrous Sulfate 325 mg PO DAILY@1200 #30 tab 07/06/19 The following prescriptions were given: Ferrous Sulfate 325 mg PO DAILY@1200 #30 tab Transmission Status: Pending to [id number] Primary Care Physician: Jasmeet Murray MD [Primary Care Provider] - Within 2 Weeks Test Results: Test results from this visit will be discussed in further detail at your follow- up appointment, if applicable. Please Follow Up With: Andreas Overton MD When: 07/31/19 Proposed Discharge Date: 07/06/19
--- NOTE | 2019-07-06 10:39 | DS.PCM_ITS ---
Discharge Date and Diagnosis - Problem List Patient Problems: Active and Suspected Problems (Last Reviewed 08/08/18 @ 14:01 by Andreas Overton MD) Acute blood loss anemia (Acute) GI bleed (Acute) Date of Admission: 07/04/19 Date of Discharge: 07/06/19 - Primary Discharge Diagnosis Active and Suspected Problems (Last Reviewed 08/08/18 @ 14:01 by Andreas Overton MD) Acute blood loss anemia (Acute) GI bleed (Acute) 1. GI bleed * likely diverticular as source, exacerbated by asa and clopidogrel * resolved at this time 2. Acute blood loss anemia * 2/2 above * Hg went from 12.5 to 8.1 * no need for transfusion at this time. 3. CAD * last PCI in 2004 * Hold ASA and clopidogrel * Resume ASA in 2 weeks. Hold clopidogrel until seen by cardiology (appt sindy Overton on 08/09) - Secondary Discharge Diagnosis Chronic Problems (Last Reviewed 08/08/18 @ 14:01 by Andreas Overton MD) CAD (coronary artery disease) (Chronic) History of GI bleed (Chronic) Essential (primary) hypertension (Chronic) HLD (hyperlipidemia) (Chronic) Hospital Course and Treatment Procedures: Colonoscopy, EGD Summary of Care Provided: The patient is a 68 year old M with melena and hematochezia. Patient found to have a GI bleed and did develop acute blood loss anemia of drop of hemoglobin up by 4 g. Patient an EGD and colonoscopy performed by Dr. Hughes on the . Showed no obvious source of bleeding but is felt that was likely diverticular etiology. The diverticular bleed was likely enhanced by him being on aspirin and clopidogrel. Hemoglobin has remained stable and patient will continue to hold aspirin and clopidogrel but resume aspirin about 2 weeks. Plavix will be held indefinitely until determined if necessary by cardiology. Vision will be started on 305 mg daily of ferrous sulfate for the next 30days likely will not be need to be continued beyond that. [] Patient Problems: Active and Suspected Problems (Last Reviewed 08/08/18 @ 14:01 by Andreas Overton MD) Acute blood loss anemia (Acute) GI bleed (Acute) - Physical Exam General: Alert, No apparent distress HEENT: Atraumatic, Normocephalic Psych/Mental Status: Normal Affect, Appropriate Vital Signs Temp Pulse Resp BP Pulse Ox 36.7 C 78 16 125/69 H 100 07/06/19 09:53 07/06/19 09:56 07/06/19 09:53 07/06/19 09:53 07/06/19 09:53 Oxygen Delivery Method Room Air Weight: 61.6 kg Body Mass Index (BMI) 24.0 Intake and Output for Last 24 Hours 07/04/19 07/05/19 07/06/19 23:59 23:59 23:59 Intake Total 1968 3899 / 3899 1376 / 1376 Output Total 1875 / 1875 1125 / 1125 Balance 1968 251 / 251 Microbiology Past 72 Hours 07/04/19 16:45 Stool Occult Blood (JOSE) - Final Stool Laboratory Tests Past 24 Hrs 07/05/19 07/06/19 14:10 07:29 WBC 8.7 RBC 2.77 L Hgb 8.1 L 8.0 L Hct 24.4 L 24.4 L MCV 88.1 MCH 28.9 MCHC 32.8 RDW Std Deviation 44.8 H RDW Coeff of Hi 13.9 Plt Count 158 MPV 10.3 Immature Gran % (Auto) 1.600 H Neut % (Auto) 68.0 Lymph % (Auto) 21.6 [place] % (Auto) 7.9 Eos % (Auto) 0.7 Baso % (Auto) 0.2 Absolute Neuts (auto) 5.9 Absolute Lymphs (auto) 1.88 Nucleated RBC % 0.8 Discharge Diet: Low fat/ Low Cholesterol Call your doctor if you observe: - - rectal bleeding, dark tarry stools Home Medications: Medications to take at Discharge Finasteride [Proscar] 5 mg PO DAILY 08/11/16 lovastatin 40 mg tablet 40 mg PO DAILY #90 tab 08/03/18 hydrochlorothiazide 25 mg tablet 25 mg PO DAILY #90 tab 09/14/18 metoprolol tartrate 25 mg tablet 25 mg PO DAILY #90 tab 10/10/18 Ascorbic Acid [Vitamin C] 500 mg PO DAILY@0800 07/04/19 Aspirin [Adult Low Dose Aspirin EC] 81 mg PO DAILY #0 07/06/19 Ferrous Sulfate 325 mg PO DAILY@1200 #30 tab 07/06/19 Following Prescrptions Were Given to Patient: Ferrous Sulfate 325 mg PO DAILY@1200 #30 tab Transmission Status: Pending to [id number] Primary Care Physician: Jasmeet Murray MD [Primary Care Provider] - Within 2 Weeks Please Follow Up With: Andreas Overton MD When: 07/31/19 Disposition: Home Minutes spent on discharge:: 32 Patient Condition:: Good Medical Necessity - Tobacco Use Smoking Status: Never smoker Tobacco Use: Non-smoker Meaningful Use Info Meaningful Use Diagnoses (Choose all that apply): None applicable Code Visit Inpatient E&M: 61443 Disch Hosp
[2019-07-06] MEDS: Ferrous Sulfate 325 MG Tablet PO (11:55)
--- NOTE | 2019-07-06 17:04 | PCM.PN.SRG ---
Patient Problems: Active and Suspected Problems (Last Reviewed 08/08/18 @ 14:01 by Andreas Overton MD) Acute blood loss anemia (Acute) Subjective: no abdominal pain, no further bleeding - Physical Exam General: Alert, Oriented x3, Cooperative Lungs: Clear to auscultation, Normal air movement Cardiovascular: Regular rate, No murmurs Abdomen: Bowel Sounds Present, Soft, Non Tender Vital Signs Temp Pulse Resp BP Pulse Ox 98.2 F 72 14 124/74 H 95 07/06/19 10:39 07/06/19 11:00 07/06/19 10:39 07/06/19 10:39 07/06/19 10:39 Oxygen Delivery Method Room Air Weight: 61.6 kg Body Mass Index (BMI) 24.0 Intake and Output for Last 24 Hours 07/04/19 07/05/19 07/06/19 23:59 23:59 23:59 Intake Total 1968 3899 / 3899 2704 / 2704 Output Total 1875 / 1875 3000 / 3000 Balance 1968 -296 / -296 Microbiology Past 72 Hours 07/04/19 16:45 Stool Occult Blood (JOSE) - Final Stool Laboratory Tests Past 24 Hrs 07/06/19 07:29 WBC 8.7 RBC 2.77 L Hgb 8.0 L Hct 24.4 L MCV 88.1 MCH 28.9 MCHC 32.8 RDW Std Deviation 44.8 H RDW Coeff of Hi 13.9 Plt Count 158 MPV 10.3 Immature Gran % (Auto) 1.600 H Neut % (Auto) 68.0 Lymph % (Auto) 21.6 [place] % (Auto) 7.9 Eos % (Auto) 0.7 Baso % (Auto) 0.2 Absolute Neuts (auto) 5.9 Absolute Lymphs (auto) 1.88 Nucleated RBC % 0.8 Medical Necessity - Tobacco Use Smoking Status: Never smoker Tobacco Use: Non-smoker Assessment/Plan All Active Problems (Last Reviewed 08/08/18 @ 14:01 by Andreas Overton MD) Acute blood loss anemia (Acute) GI bleed (Acute) H/O percutaneous transluminal coronary angioplasty (Resolved) GI bleed, acute hemoglobin drop from 12-8. upper and lower endoscopy was performed. Upper endoscopy demonstrated no abnormalities. Lower endoscopy demonstrated dense diverticulosis without any obvious signs of recent bleeding. There were potentially some areas in the distal sigmoid colon which demonstrated some stool possibly with small blood flecks in place. The impression therefore was most likely a diverticular bleed as the cause of his issues. The patient's hemoglobin has been stable since admission. I discussed with the patient if he has additional blood per rectum he should return immediately and get a bleeding scan.
== END 2019-07-06 13:40 | disposition home or self-care (01) | DRG 378 ==
LOC: ED 16:55 → PCU 19:24
PROVIDERS: Surgery; Admitting Provider Family Medicine; Emergency Provider Emergency Medicine; Family Provider Family Medicine; PCP Family Medicine; Referring Provider Family Medicine
PROC: 0DJD8ZZ Inspection of Lower Intestinal Tract, Via Natural or Artificial Opening Endoscopic (ICD-10-PCS; CPT 45378; principal; 2019-07-05 11:25)
DX: K57.31 Diverticulosis of large intestine without perforation or abscess with bleeding (principal); D62 Acute posthemorrhagic anemia; I25.10 Atherosclerotic heart disease of native coronary artery without angina pectoris; I10 Essential (primary) hypertension; E78.5 Hyperlipidemia, unspecified; K44.9 Diaphragmatic hernia without obstruction or gangrene; Z79.82 Long term (current) use of aspirin; Z79.02 Long term (current) use of antithrombotics/antiplatelets; Z95.5 Presence of coronary angioplasty implant and graft; N40.0 Benign prostatic hyperplasia without lower urinary tract symptoms
CPT/HCPCS: 36415; 80048; 80076; 82274; 83036; 84484; 85014; 85018; 85025; 85610; 85730; 86850; 86900; 86901; 88305; 88342; 93005; 99285; J7030; J7040; J7120; A4216

== ENCOUNTER → 2019-07-25 07:51 | Outpatient (CLI) | payer MEDICARE, SELFPAY ==
[2019-07-04 19:20] VITALS: BMI 24.0
[2019-07-25 08:20] LABS: Absolute Lymphocyte Count 2.36 X10^3/uL (0.83-4.51); Absolute Neutrophil Count 4.2 X10^3/uL (2.0-7.7); Basophil# 0.05 X10^3/uL; Basophil% 0.7 % (0-1); Eosinophil# 0.12 X10^3/uL; Eosinophils% 1.6 % (0-5); Hematocrit 37.7 % (40-54); Hemoglobin 11.6 g/dL (13.0-16.5); Lymphocyte # 2.36 X10^3/ul (4.0); Lymphocyte % 31.8 % (19-41); Mean Corp Hgb Conc 30.8 g/dL (32-36); Mean Corpuscular Hgb 27.3 pg (27.0-32.0); Mean Corpuscular Volume 88.7 fL (80-94); Mean Platelet Vol. 9.6 fl (6.2-12.0); Monocyte# 0.62 X10^3/uL; Monocyte% 8.3 % (0-10); NRBC Flagged by Analyzer 0 % (0-5); Neutrophil # 4.23 X10^3/uL (2.7-7.7); Neutrophil % 56.9 % (47-70); Platelet Count 261 K/mm3 (150-450); RBC Distribution Width CV 14.3 % (11.6-14.6); RBC Distribution Width SD 46.8 fl (35.1-43.9); Red Blood Count 4.25 M/mm3 (4.6-6.2); White Blood Count 7.4 K/mm3 (4.4-11.0)
[2019-07-25 08:41] LABS: Iron 35 ug/dL (65-175)
== END ==
PROVIDERS: Family Provider Family Medicine; PCP Family Medicine; Referring Provider Family Medicine; Visit Provider Family Medicine
DX: D50.9 Iron deficiency anemia, unspecified (principal)
CPT/HCPCS: 36415; 83540; 85025

== ENCOUNTER → 2019-08-08 07:16 | Outpatient (CLI) | payer MEDICARE, SELFPAY ==
[2019-07-31 12:56] VITALS: BMI 22.1
[2019-08-08 09:27] LABS: AST(SGOT) 19 U/L (15-37); Alanine Aminotransfer ALT/SGPT 16 U/L (16-61); Albumin, Serum 3.7 g/dL (3.2-5.0); Alkaline Phosphatase 73 U/L (45-117); Bilirubin, Direct 0.11 mg/dL (0.00-0.30); Cholesterol 146 mg/dL (200); Globulin 3.7 g/dL (2.2-4.2); High Density Lipoprotein 33 mg/dL; Protein, Total 7.4 g/dL (6.4-8.2); Triglycerides 247 mg/dL; Very Low Density Lipoprotein 49 mg/dL (5-40)
== END ==
PROVIDERS: Family Provider Family Medicine; PCP Family Medicine; Referring Provider Internal Medicine Cardiovascular Disease; Visit Provider Internal Medicine Cardiovascular Disease
DX: E78.5 Hyperlipidemia, unspecified (principal); I25.10 Atherosclerotic heart disease of native coronary artery without angina pectoris
CPT/HCPCS: 36415; 80061; 80076

== ENCOUNTER → 2021-05-09 06:59 | Outpatient (CLI) | payer MEDICARE, SELFPAY ==
[2021-05-06 15:29] VITALS: BMI 21.7
[2021-05-09 08:06] LABS: AST(SGOT) 23 U/L (15-37); Alanine Aminotransfer ALT/SGPT 20 U/L (16-61); Albumin, Serum 3.8 g/dL (3.2-5.0); Alkaline Phosphatase 65 U/L (45-117); Bilirubin, Direct 0.09 mg/dL (0.00-0.30); Cholesterol 157 mg/dL (200); Globulin 3.7 g/dL (2.2-4.2); High Density Lipoprotein 39 mg/dL; Protein, Total 7.5 g/dL (6.4-8.2); Triglycerides 216 mg/dL; Very Low Density Lipoprotein 43 mg/dL (5-40)
== END ==
PROVIDERS: PCP Family Medicine; Referring Provider Internal Medicine Cardiovascular Disease; Visit Provider Internal Medicine Cardiovascular Disease
DX: E78.00 Pure hypercholesterolemia, unspecified (principal)
CPT/HCPCS: 36415; 80061; 80076

== ENCOUNTER → 2021-05-18 06:42 | Outpatient (CLI) | payer MEDICARE, SELFPAY ==
[2021-05-06 15:29] VITALS: BMI 21.7
--- NOTE | 2021-05-18 06:48 | ECHOD_ITS ---
Reason For Study: CAD/ASHD Procedure This was a 2D Doppler, Color Flow transthoracic echocardiogram. Exam performed in department. Left Ventricle Normal LV size. Left ventricular systolic function is normal. The estimated ejection fraction is 60 %. Stage 1 diastolic dysfunction. No regional wall motion abnormalities noted. Right Ventricle Normal RV size. Normal systolic function. Atria Normal left atrium. Normal right atrium. Mitral Valve Normal mitral valve. Trivial mitral valve insufficiency. Tricuspid Valve Normal tricuspid valve. Mild (1+) tricuspid valve insufficiency. Pulmonary artery systolic pressure is 28 mmHg. Aortic Valve Trisinus/trileaflet aortic valve. Mild focal aortic valve calcification. Pulmonic Valve Normal pulmonic valve. Great Vessels Normal aortic root. The pulmonary artery is normal size. Normal inferior vena cava. Pericardium/Pleural No pericardial effusion. MMode/2D Measurements & Calculations LVIDd: 4.0 cm IVSd: 0.89 cm Ao root diam: 2.8 cm LVIDs: 2.4 cm LVPWd: 0.95 cm RVDd: 4.2 cm FS: 41.0 % LAV(MOD-sp2): 52.2 ml LVAd ap4: 21.2 cm2 SV(MOD-sp4): 31.0 ml LVLd ap4: 6.7 cm EDV(MOD-sp4): 54.6 ml EDV(sp4-el): 57.1 ml LVAs ap4: 13.3 cm2 LVLs ap4: 6.3 cm ESV(MOD-sp4): 23.7 ml ESV(sp4-el): 24.0 ml EF(MOD-sp4): 56.7 % EF(sp4-el): 57.9 % SV(sp4-el): 33.1 ml LA A4 area: 18.2 cm2 LA dimension(2D): 4.5 cm RA A4 area: 8.6 cm2 Doppler Measurements & Calculations MV E max oh: 76.2 cm/sec Lat Peak E' Oh: 9.6 cm/sec Med Peak E' Oh: 5.7 cm/sec MV A max oh: 80.4 cm/sec E/E' lat: 8.0 E/E' med: 13.3 MV E/A: 0.95 Ao V2 max: 128.3 cm/sec LV V1 max: 105.3 cm/sec PA V2 max: 121.0 cm/sec Ao max P.6 mmHg LV V1 max P.4 mmHg Ao V2 mean: 83.9 cm/sec Ao mean P.1 mmHg Ao V2 VTI: 27.1 cm TR max oh: 246.0 cm/sec TR max P.2 mmHg ECHO/Echo Complete Interpretation Summary Normal LV size. Left ventricular systolic function is normal. The estimated ejection fraction is 60 %. Stage 1 diastolic dysfunction. Pulmonary artery systolic pressure is 28 mmHg. Mild focal aortic valve calcification. Ordering Physician: Andreas Overton Referring Physician: Jasmeet Murray Performed By: Chhaya Barney, KAILA, RVT
--- NOTE | 2021-05-18 17:59 | STRESSREP ---
Stress Test Report 70-year-old man with a history of coronary artery disease status post angioplasty and stenting of the left anterior descending artery and the right coronary artery. Stress protocol: Resting EKG demonstrates normal sinus rhythm with a rate of 62 bpm normal intervals are noted resting blood pressure is 138/82 mmHg. Patient exercised according to regular Haris protocol for a total duration of 6 minutes. Patient completed stage II of the Haris protocol the maximum heart rate attained was 139 bpm which was 93% of max infected heart rate the maximum workload was 7 metabolic equivalents. At rest there were no ST or T wave changes noted to suggest ischemia and at peak exercise upsloping ST changes were noted with did not meet the criteria for ischemia. No clinical angina was noted the test was terminated due to mild dyspnea and the target heart rate being achieved. The peak blood pressure was 172/78 mmHg. Myocardial perfusion protocol. 10.7 mCi of technetium 99m sestamibi was injected at rest. The patient exercised according to regular Haris protocol for 6 minutes and at peak exercise 31.9 mCi of technetium 99m sestamibi was injected stress images were obtained stress and rest images were reconstructed and compared in the short axis vertical long horizontal long axis. Gated images were also obtained Perfusion SPECT analysis: Review of the stress images demonstrate normal uptake of tracer noted in all areas of the myocardium the resting images similarly demonstrate normal uptake of tracer noted in all areas of the myocardium. No areas of reversibility are noted suggest ischemia no previous infarct is noted. Gated SPECT analysis: The gated ejection fraction is 76%. Conclusion: Normal exercise myocardial perfusion stress test at a moderate workload. Preserved ejection fraction.
== END ==
PROVIDERS: PCP Family Medicine; Referring Provider Internal Medicine Cardiovascular Disease; Visit Provider Internal Medicine Cardiovascular Disease
DX: I25.10 Atherosclerotic heart disease of native coronary artery without angina pectoris (principal); Z95.5 Presence of coronary angioplasty implant and graft
CPT/HCPCS: 78452; 93017; 93306; A9500; A4216

== ENCOUNTER → 2021-06-08 15:42 | Outpatient (CLI) | payer MEDICARE, SELFPAY ==
[2021-05-06 15:29] VITALS: BMI 21.7
[2021-06-08 17:58] LABS: PSA,Total - Annual Screen 2.48 ng/mL (0.00-4.00)
== END ==
PROVIDERS: PCP Family Medicine; Referring Provider Urology; Visit Provider Urology
DX: Z12.5 Encounter for screening for malignant neoplasm of prostate (principal)
CPT/HCPCS: 36415; 84153; G0103

== ENCOUNTER → 2022-07-17 | Outpatient (CLI) | payer MEDICARE, SELFPAY ==
[2022-07-17 09:05] LABS: PSA,Total - Annual Screen 2.06 ng/mL (0.00-4.00)
== END | disposition home or self-care (01) ==
LOC: LAB 08:22
PROVIDERS: PCP Family Medicine; Referring Provider Urology; Visit Provider Urology
DX: Z12.5 Encounter for screening for malignant neoplasm of prostate (principal)
CPT/HCPCS: 36415; 84153; G0103

== ENCOUNTER → 2023-08-08 | Outpatient (CLI) | payer MEDICARE, SELFPAY ==
[2023-08-08 15:39] LABS: PSA,Total - Annual Screen 2.47 ng/mL (0.00-4.00)
== END | disposition home or self-care (01) ==
LOC: LAB 14:45
PROVIDERS: PCP Nurse Practitioner Family; Referring Provider Nurse Practitioner; Visit Provider Nurse Practitioner
DX: Z12.5 Encounter for screening for malignant neoplasm of prostate (principal)
CPT/HCPCS: 36415; 84153; G0103

== ENCOUNTER → 2025-04-17 | Outpatient (CLI) | payer MEDICARE, SELFPAY ==
[2025-04-17 17:52] LABS: Absolute Lymphocyte Count 1.71 X10^3/uL (0.83-4.51); Absolute Neutrophil Count 7.6 X10^3/uL (2.0-7.7); Basophil# 0.05 X10^3/uL; Basophil% 0.5 % (0-1); Eosinophil# 0.04 X10^3/uL; Eosinophils% 0.4 % (0-5); Hematocrit 45.4 % (40-54); Hemoglobin 14.9 g/dL (13.0-16.5); Lymphocyte # 1.71 X10^3/ul (0.83-4.51); Lymphocyte % 16.7 % (19-41); Mean Corp Hgb Conc 32.8 g/dL (32-36); Mean Corpuscular Hgb 27.8 pg (27.0-32.0); Mean Corpuscular Volume 84.7 fL (80-94); Monocyte# 0.75 X10^3/uL; Monocyte% 7.3 % (0-10); NRBC Flagged by Analyzer 0 % (0-5); Neutrophil # 7.63 X10^3/uL (2.7-7.7); Neutrophil % 74.8 % (47-70); Platelet Count 256 K/mm3 (150-450); RBC Distribution Width CV 13.9 % (11.6-14.6); RBC Distribution Width SD 42.8 fl (35.1-43.9); Red Blood Count 5.36 M/mm3 (4.6-6.2); White Blood Count 10.2 K/mm3 (4.4-11.0)
[2025-04-17 18:36] LABS: ALB/GLOB Ratio 1.3 RATIO (0.9-2.4); AST(SGOT) 26 U/L (<=37); Alanine Aminotransfer ALT/SGPT 13 U/L (<=46); Albumin, Serum 4.4 g/dL (3.4-4.8); Alkaline Phosphatase 83 U/L (40-129); Anion Gap 13 (5-15); BUN 21 mg/dL (4-19); BUN/Creat Ratio 24.9 RATIO (10-20); Calcium,Total 9.6 mg/dL (7.6-11.0); Carbon Dioxide 24.7 mmol/L (21.0-32.0); Chloride 101 mmol/L (98-108); Cholesterol 153 mg/dL (<=200); Creatinine, Serum 0.86 mg/dL (0.70-1.20); EST Glomerular Filtration Rate 90 (>60); Globulin 3.5 g/dL (2.2-4.2); Glucose 90 mg/dL (70-99); High Density Lipoprotein 32 mg/dL; Low Density Lipoprotein Calc. 78 mg/dL; PSA,Total - Annual Screen 1.82 ng/mL (0.02-4.00); Protein, Total 7.9 g/dL (5.9-8.4); Sodium Level 138 mmol/L (133-145); Total Bilirubin 0.52 mg/dL (0.00-1.30); Triglycerides 215 mg/dL; Very Low Density Lipoprotein 43 mg/dL (5-40)
== END | disposition home or self-care (01) ==
LOC: MTLAB 14:49
PROVIDERS: PCP Nurse Practitioner Family; Referring Provider Nurse Practitioner Family; Visit Provider Nurse Practitioner Family
DX: E78.5 Hyperlipidemia, unspecified (principal); I10 Essential (primary) hypertension; Z12.5 Encounter for screening for malignant neoplasm of prostate
CPT/HCPCS: 36415; 80053; 80061; 84153; 85025; G0103